=== PATIENT | female | born 1950 | race Caucasian/White ===

== ENCOUNTER → 2018-03-31 | Outpatient (CLI) | payer MEDICARE ==
[~2018-03-31] MED LIST: ACET325T14 PO; ASPI-621 PO; ATOR20TA PO; CALC-192 PO; CHOL2000 PO; CHOL40002 PO; Iron PO; METO-264 PO; MULT-6 PO; NITR0.4T28 SL; OMEP-110 PO; SUPER B COMPLEX PO; TICA90TA PO; [UNRECOGNIZED DRUG - OTHER] PO
[2018-03-31 15:52] LABS: BASOPHILS # (AUTO) 0.01 x10^3/uL (0-0.1); BASOPHILS % (AUTO) 0 % (0-1); EOSINOPHILS # (AUTO) 0.08 x10^3/uL (0-0.4); EOSINOPHILS % (AUTO) 1 % (1-7); LYMPHOCYTES # (AUTO) 2.05 x10^3/uL (1-3.4); LYMPHOCYTES % (AUTO) 26 % (22-44); MD NO; MEAN CORPUSCULAR HEMOGLOBIN 28.6 pg (27.0-34.8); MEAN CORPUSCULAR HGB CONC 33.4 g/dL (32.4-35.8); MEAN CORPUSCULAR VOLUME 85.6 fL (80-100); MEAN PLATELET VOLUME 11.2 fL (7.4-10.4); MONOCYTES # (AUTO) 0.37 x10^3/uL (0.2-0.8); MONOCYTES % (AUTO) 5 % (2-9); NEUTROPHILS # (AUTO) 5.42 x10^3/uL (1.8-6.8); NEUTROPHILS % (AUTO) 68 % (42-75); PLATELET COUNT 130 x10^3/uL (130-400); RED CELL DISTRIBUTION WIDTH 14.5 % (9.6-15.2)
[2018-03-31 15:58] LABS: CALCIUM 8.6 mg/dL (8.5-10.1); CHLORIDE 110 mmol/L (98-107)
[2018-03-31 16:05] LABS: ALANINE AMINOTRANSFERASE 53 U/L (12-78); ALBUMIN 3.9 g/dL (3.4-5.0); ALKALINE PHOSPHATASE 129 U/L (45-117); ANION GAP 7 mmol/L (5-15); BILIRUBIN,TOTAL 0.2 mg/dL (0.2-1.0); CREATININE 1.11 mg/dL (0.55-1.02); TOTAL PROTEIN 7.1 g/dL (6.4-8.2)
== END | disposition home or self-care (01) ==
LOC: CVU 06:47
PROVIDERS: ATTEND Internal Medicine Cardiovascular Disease
DX: I25.9 Chronic ischemic heart disease, unspecified (principal); I34.0 Nonrheumatic mitral (valve) insufficiency; I34.2 Nonrheumatic mitral (valve) stenosis; I35.8 Other nonrheumatic aortic valve disorders; I11.9 Hypertensive heart disease without heart failure; I25.119 Atherosclerotic heart disease of native coronary artery with unspecified angina pectoris; E11.9 Type 2 diabetes mellitus without complications; R00.2 Palpitations; R01.1 Cardiac murmur, unspecified; E66.9 Obesity, unspecified
CPT/HCPCS: 0399T; 36415; 78452; 80053; 85025; 93017; 93306; A9502

== ENCOUNTER 2018-04-02 10:27 | Observation (INO) | payer MEDICARE ==
[~2018-04-02] VITALS: Ht 154.9 cm; Wt 91.5 kg
[2018-04-02] MEDS ORDERED: SODIUM CHLORIDE 0.9% 1,000 ML IV ONE (10:47)
[2018-04-02 10:54] VITALS: BP 173/80
[2018-04-02] MEDS ORDERED: ASPIRIN 325 MG TABLET EC PO ONE (11:00)
[2018-04-02] MEDS ORDERED: CHOL2000 PO (11:07)
[2018-04-02] MEDS ORDERED: ASPI-621 PO (11:07)
[2018-04-02] MEDS ORDERED: OMEP-110 PO (11:07)
[2018-04-02] MEDS ORDERED: SUPER B COMPLEX PO (11:07)
[2018-04-02] MEDS ORDERED: MULT-6 PO (11:07)
[2018-04-02] MEDS ORDERED: CHOL40002 PO (11:07)
[2018-04-02] MEDS ORDERED: ATOR20TA PO (11:07)
[2018-04-02] MEDS ORDERED: METO-264 PO (11:07)
[2018-04-02] MEDS ORDERED: CALC-192 PO (11:07)
[2018-04-02] MEDS ORDERED: [UNRECOGNIZED DRUG - OTHER] PO (11:07)
[2018-04-02] MEDS ORDERED: NITR0.4T28 SL (11:07)
[2018-04-02] MEDS ORDERED: Iron PO (11:12)
[2018-04-02] MEDS ORDERED: ASPIRIN 325 MG TABLET EC ONE (11:37)
[2018-04-02] MEDS ORDERED: FENTANYL PF 100 MCG/2ML ONE (12:14)
[2018-04-02] MEDS ORDERED: VERAPAMIL 2.5 MG/ML, 2ML ONE (12:14)
[2018-04-02] MEDS ORDERED: MIDAZOLAM 1 MG/ML, 2ML ONE ×3 (12:14→13:37)
[2018-04-02] MEDS ORDERED: HEPARIN 1,000 UNITS/ML, 10ML ONE (12:14)
[2018-04-02] MEDS ORDERED: DIPHENHYDRAMINE 50 MG/ML, 1ML ONE (12:14)
[2018-04-02] MEDS ORDERED: BIVALIRUDIN 250 MG ONE (12:56)
[2018-04-02] MEDS ORDERED: TICAGRELOR 90 MG TABLET ONE (12:56)
[2018-04-02] MEDS ORDERED: LABETALOL 5MG/ML, 20ML ONE (13:03)
[2018-04-02] MEDS ORDERED: SODIUM CHLORIDE 0.9% 1,000 ML IV SCH (13:42)
[2018-04-02] MEDS ORDERED: CHOLECALCIFEROL 1,000 UNIT TABLET PO SCH (14:00)
[2018-04-02] MEDS ORDERED: ONDANSETRON 2MG/ML, 2ML IVPush PRN (14:00)
[2018-04-02] MEDS ORDERED: ACETAMINOPHEN 325 MG TABLET PO PRN (14:00)
[2018-04-02] MEDS ORDERED: ZOLPIDEM 5MG TABLET PO PRN (14:00)
[2018-04-02] MEDS: CHOLECALCIFEROL 1,000 UNIT TABLET PO SCH (14:00)
[2018-04-02 14:26] VITALS: BP 118/51
[2018-04-02] MEDS: FERROUS SULFATE 325 MG TABLET PO SCH (14:30)
[2018-04-02] MEDS ORDERED: [UNRECOGNIZED DRUG - OTHER] PO SCH (16:00)
[2018-04-02] MEDS ORDERED: AMLODIPINE 5 MG TABLET PO PRN (18:30)
[2018-04-02] MEDS ORDERED: METOPROLOL SUCCINATE 25 MG TAB.ER.24H PO ONE (18:30)
[2018-04-02 19:08] VITALS: BP 152/76
[2018-04-02] MEDS: TICAGRELOR 90 MG TABLET PO SCH (20:56)
[2018-04-02] MEDS ORDERED: ATORVASTATIN 20 MG TABLET PO SCH (21:00)
[2018-04-02] MEDS ORDERED: CALCIUM/VITAMIN D3 250-125 TABLET PO SCH (21:00)
[2018-04-03 02:01] VITALS: BP 119/67
[2018-04-03 05:10] LABS: ANION GAP 8 mmol/L (5-15); CALCIUM 8.3 mg/dL (8.5-10.1); CHLORIDE 112 mmol/L (98-107)
[2018-04-03 05:12] LABS: CREATININE 1.04 mg/dL (0.55-1.02)
[2018-04-03 07:19] VITALS: BP 158/75
[2018-04-03] MEDS ORDERED: MULTIVITAMIN 1 TABLET PO SCH (09:00)
[2018-04-03] MEDS: FERROUS SULFATE 325 MG TABLET PO SCH ×2 (09:00→09:45)
[2018-04-03] MEDS ORDERED: METOPROLOL SUCCINATE 50 MG TAB.ER.24H PO SCH (09:00)
[2018-04-03] MEDS ORDERED: MULTIVITS,STRESS FORMULA 1 TABLET PO SCH (09:00)
[2018-04-03] MEDS ORDERED: ASPIRIN 81 MG TABLET EC PO SCH (09:00)
[2018-04-03] MEDS ORDERED: ACET325T14 PO (09:33)
[2018-04-03] MEDS ORDERED: TICA90TA PO (09:33)
[2018-04-03] MEDS: TICAGRELOR 90 MG TABLET PO SCH (09:45)
[2018-04-03] MEDS: CHOLECALCIFEROL 1,000 UNIT TABLET PO SCH (09:45)
[2018-04-04] MEDS ORDERED: CHOLECALCIFEROL 1,000 UNIT TABLET PO SCH (09:00)
== END 2018-04-03 10:55 | disposition home or self-care (01) ==
LOC: CACL 10:27 → 5SO 13:42 → CACL 13:42 → 5SO 14:06 → DCLOUNGE 04-03 10:39
PROVIDERS: ADMIT Internal Medicine Cardiovascular Disease; ATTEND Internal Medicine Cardiovascular Disease
DX: I25.119 Atherosclerotic heart disease of native coronary artery with unspecified angina pectoris (principal); I10 Essential (primary) hypertension; E11.22 Type 2 diabetes mellitus with diabetic chronic kidney disease; N18.2 Chronic kidney disease, stage 2 (mild); R01.1 Cardiac murmur, unspecified
CPT/HCPCS: 36415; 80048; 93458; 93567; 93571; 99156; 99157; C1725; C1769; C1874; C1887; C1894; C9600; G0378; J0583; J1200; J1644; J2250; J3010; Q9967

== ENCOUNTER → 2018-04-14 | Outpatient (CLI) | payer MEDICARE ==
[2018-04-14 12:50] LABS: ANION GAP 8 mmol/L (5-15); CHLORIDE 112 mmol/L (98-107); CREATININE 1.24 mg/dL (0.55-1.02)
== END | disposition home or self-care (01) ==
LOC: CFH 10:34
PROVIDERS: ATTEND Internal Medicine Endocrinology, Diabetes & Metabolism
DX: I12.9 Hypertensive chronic kidney disease with stage 1 through stage 4 chronic kidney disease, or unspecified chronic kidney disease (principal); N18.3 Chronic kidney disease, stage 3 (moderate); E11.9 Type 2 diabetes mellitus without complications
CPT/HCPCS: 36415; 80051; 82565; 84520

== ENCOUNTER → 2018-06-03 | Outpatient (CLI) | payer MEDICARE ==
[~2018-06-03] MED LIST changes: -ASPI-621 PO; +ASPI81TA45 PO
[2018-06-03 12:34] LABS: BASOPHILS # (AUTO) 0.02 x10^3/uL (0-0.1); BASOPHILS % (AUTO) 0 % (0-1); EOSINOPHILS # (AUTO) 0.19 x10^3/uL (0-0.4); EOSINOPHILS % (AUTO) 3 % (1-7); LYMPHOCYTES % (AUTO) 23 % (22-44); MD NO; MEAN CORPUSCULAR HEMOGLOBIN 28.7 pg (27.0-34.8); MEAN CORPUSCULAR HGB CONC 32.7 g/dL (32.4-35.8); MEAN CORPUSCULAR VOLUME 87.8 fL (80-100); MEAN PLATELET VOLUME 11.2 fL (7.4-10.4); MONOCYTES # (AUTO) 0.28 x10^3/uL (0.2-0.8); MONOCYTES % (AUTO) 5 % (2-9); NEUTROPHILS # (AUTO) 4.28 x10^3/uL (1.8-6.8); NEUTROPHILS % (AUTO) 69 % (42-75); PLATELET COUNT 119 x10^3/uL (130-400); RED BLOOD COUNT 4.36 x10^6/uL (3.82-5.3); RED CELL DISTRIBUTION WIDTH 15.1 % (9.6-15.2)
[2018-06-03 12:59] LABS: ALBUMIN 3.8 g/dL (3.4-5.0); ANION GAP 8 mmol/L (5-15); CALCIUM 8.4 mg/dL (8.5-10.1); CHLORIDE 112 mmol/L (98-107)
[2018-06-03 13:27] LABS: % IRON SATURATION 25 % (20-55); ALANINE AMINOTRANSFERASE 83 U/L (12-78); ALKALINE PHOSPHATASE 137 U/L (45-117); BILIRUBIN,TOTAL 0.9 mg/dL (0.2-1.0); CHOL/HDL RATIO 1.8; CHOLESTEROL, TOTAL 88 mg/dL (140-239); HDL CHOL % 55 % (28-40); HDL CHOLESTEROL (DIRECT) 48 mg/dL (40-60); IRON LEVEL 80 mcg/dL (50-170); LDL CHOLESTEROL,CALCULATED 23 mg/dL (54-169); LDL/HDL RATIO 0.5 (0.5-3.0); PREALBUMIN 20.8 mg/dL (20.0-40.0); TOTAL IRON BINDING CAPACITY 321 mcg/dL (250-450); TOTAL PROTEIN 6.9 g/dL (6.4-8.2); TRANSFERRIN 240 mg/dL (200-360); TRIGLYCERIDES 87 mg/dL (50-200); VLDL CHOLESTEROL 17 mg/dL (0-25)
[2018-06-03 13:58] LABS: HEMOGLOBIN A1C 8.2 % (4.2-6.3)
== END | disposition home or self-care (01) ==
LOC: CFH 08:43
PROVIDERS: ATTEND Internal Medicine Cardiovascular Disease
DX: E11.22 Type 2 diabetes mellitus with diabetic chronic kidney disease (principal); I12.9 Hypertensive chronic kidney disease with stage 1 through stage 4 chronic kidney disease, or unspecified chronic kidney disease; N18.2 Chronic kidney disease, stage 2 (mild); E78.00 Pure hypercholesterolemia, unspecified; E66.9 Obesity, unspecified; K20.9 Esophagitis, unspecified; K76.0 Fatty (change of) liver, not elsewhere classified; Z72.4 Inappropriate diet and eating habits; Z98.84 Bariatric surgery status
CPT/HCPCS: 36415; 80053; 80061; 82043; 82306; 82570; 82607; 83036; 83540; 83550; 84134; 84207; 84252; 84425; 84466; 85025

== ENCOUNTER → 2018-11-19 | Outpatient (CLI) | payer MEDICARE ==
[2018-11-19 12:47] LABS: BASOPHILS # (AUTO) 0.02 x10^3/uL (0-0.1); BASOPHILS % (AUTO) 0 % (0-1); EOSINOPHILS % (AUTO) 3 % (1-7); LYMPHOCYTES % (AUTO) 25 % (22-44); MD NO; MEAN CORPUSCULAR HEMOGLOBIN 30.3 pg (27.0-34.8); MEAN CORPUSCULAR HGB CONC 32.5 g/dL (32.4-35.8); MEAN CORPUSCULAR VOLUME 93.3 fL (80-100); MEAN PLATELET VOLUME 11.5 fL (7.4-10.4); MONOCYTES # (AUTO) 0.22 x10^3/uL (0.2-0.8); MONOCYTES % (AUTO) 4 % (2-9); NEUTROPHILS # (AUTO) 4.17 x10^3/uL (1.8-6.8); NEUTROPHILS % (AUTO) 68 % (42-75); PLATELET COUNT 103 x10^3/uL (130-400); RED BLOOD COUNT 4.07 x10^6/uL (3.82-5.3); RED CELL DISTRIBUTION WIDTH 13.8 % (9.6-15.2)
[2018-11-19 13:08] LABS: ALBUMIN 3.8 g/dL (3.4-5.0); CALCIUM 8.6 mg/dL (8.5-10.1)
[2018-11-19 13:14] LABS: HEMOGLOBIN A1C 8.1 % (4.2-6.3)
[2018-11-19 13:23] LABS: ANION GAP 5 mmol/L (5-15); CHLORIDE 112 mmol/L (98-107)
[2018-11-19 13:38] LABS: % IRON SATURATION 28 % (20-55); ALANINE AMINOTRANSFERASE 100 U/L (12-78); ALKALINE PHOSPHATASE 144 U/L (45-117); BILIRUBIN,TOTAL 0.4 mg/dL (0.2-1.0); CHOL/HDL RATIO 2.1; CHOLESTEROL, TOTAL 94 mg/dL (140-239); CREATININE 1.22 mg/dL (0.55-1.02); FREE T4 (FREE THYROXINE) 0.98 ng/dL (0.76-1.46); HDL CHOL % 48 % (28-40); HDL CHOLESTEROL (DIRECT) 45 mg/dL (40-60); IRON LEVEL 95 mcg/dL (50-170); LDL CHOLESTEROL,CALCULATED 31 mg/dL (54-169); LDL/HDL RATIO 0.7 (0.5-3.0); PREALBUMIN 24.6 mg/dL (20.0-40.0); TOTAL IRON BINDING CAPACITY 343 mcg/dL (250-450); TOTAL PROTEIN 7.1 g/dL (6.4-8.2); TRANSFERRIN 254 mg/dL (200-360); TRIGLYCERIDES 90 mg/dL (50-200); VLDL CHOLESTEROL 18 mg/dL (0-25)
[2018-11-19 13:40] LABS: FOLATE LEVEL > 20.0 ng/mL (3.1-17.5)
== END | disposition home or self-care (01) ==
LOC: CFH 07:59
PROVIDERS: ATTEND Internal Medicine Cardiovascular Disease
DX: E11.22 Type 2 diabetes mellitus with diabetic chronic kidney disease (principal); N18.3 Chronic kidney disease, stage 3 (moderate); R53.81 Other malaise; I25.10 Atherosclerotic heart disease of native coronary artery without angina pectoris; E66.9 Obesity, unspecified
CPT/HCPCS: 36415; 80053; 80061; 82043; 82306; 82570; 82607; 82746; 83036; 83540; 83550; 84134; 84207; 84252; 84425; 84439; 84443; 84466; 84480; 85025

== ENCOUNTER 2018-12-17 08:41 | Outpatient (CLI) | payer MEDICARE ==
[2018-12-17 13:02] LABS: ALBUMIN 3.8 g/dL (3.4-5.0); ANION GAP 4 mmol/L (5-15); CALCIUM 8.7 mg/dL (8.5-10.1); CHLORIDE 117 mmol/L (98-107)
[2018-12-17 13:05] LABS: ALANINE AMINOTRANSFERASE 33 U/L (12-78); ALKALINE PHOSPHATASE 123 U/L (45-117); BILIRUBIN,TOTAL 0.3 mg/dL (0.2-1.0)
== END 2018-12-17 23:59 | disposition home or self-care (01) ==
LOC: CFH 08:41
PROVIDERS: ATTEND Internal Medicine Cardiovascular Disease
DX: I25.119 Atherosclerotic heart disease of native coronary artery with unspecified angina pectoris (principal); E78.00 Pure hypercholesterolemia, unspecified; I12.9 Hypertensive chronic kidney disease with stage 1 through stage 4 chronic kidney disease, or unspecified chronic kidney disease; E11.22 Type 2 diabetes mellitus with diabetic chronic kidney disease; N18.2 Chronic kidney disease, stage 2 (mild); I34.2 Nonrheumatic mitral (valve) stenosis; R53.83 Other fatigue
CPT/HCPCS: 36415; 80053

== ENCOUNTER 2018-12-29 08:50 | Outpatient (CLI) | payer MEDICARE ==
[2018-12-29 12:37] LABS: BASOPHILS # (AUTO) 0.02 x10^3/uL (0-0.1); BASOPHILS % (AUTO) 0 % (0-1); EOSINOPHILS % (AUTO) 3 % (1-7); LYMPHOCYTES # (AUTO) 1.89 x10^3/uL (1-3.4); LYMPHOCYTES % (AUTO) 25 % (22-44); MD NO; MEAN CORPUSCULAR HEMOGLOBIN 30.4 pg (27.0-34.8); MEAN CORPUSCULAR HGB CONC 32.6 g/dL (32.4-35.8); MEAN CORPUSCULAR VOLUME 93.2 fL (80-100); MEAN PLATELET VOLUME 10.6 fL (7.4-10.4); MONOCYTES # (AUTO) 0.37 x10^3/uL (0.2-0.8); MONOCYTES % (AUTO) 5 % (2-9); NEUTROPHILS # (AUTO) 5.09 x10^3/uL (1.8-6.8); NEUTROPHILS % (AUTO) 67 % (42-75); PLATELET COUNT 122 x10^3/uL (130-400); RED CELL DISTRIBUTION WIDTH 14.3 % (9.6-15.2)
[2018-12-29 13:47] LABS: ALBUMIN 3.8 g/dL (3.4-5.0); ANION GAP 4 mmol/L (5-15); CALCIUM 8.9 mg/dL (8.5-10.1); CHLORIDE 114 mmol/L (98-107); CREATININE 1.28 mg/dL (0.55-1.02)
[2018-12-29 13:49] LABS: ALANINE AMINOTRANSFERASE 41 U/L (12-78); ALKALINE PHOSPHATASE 123 U/L (45-117); TOTAL PROTEIN 7.2 g/dL (6.4-8.2)
[2018-12-29 13:51] LABS: BILIRUBIN,TOTAL 0.3 mg/dL (0.2-1.0)
== END 2018-12-29 23:59 | disposition home or self-care (01) ==
LOC: CFH 08:50
PROVIDERS: ATTEND Internal Medicine Cardiovascular Disease
DX: I25.119 Atherosclerotic heart disease of native coronary artery with unspecified angina pectoris (principal); I34.2 Nonrheumatic mitral (valve) stenosis; E78.00 Pure hypercholesterolemia, unspecified; I10 Essential (primary) hypertension; R53.83 Other fatigue
CPT/HCPCS: 36415; 80053; 85025

== ENCOUNTER 2018-12-30 12:15 | Outpatient (CLI) | payer MEDICARE | END 2018-12-30 23:59 | disposition home or self-care (01) | LOC: CFH 12:15 | PROVIDERS: ATTEND Internal Medicine Cardiovascular Disease | DX: R07.89 Other chest pain (principal) | CPT/HCPCS: 78452; 93017; A9502 ==

== ENCOUNTER 2019-01-05 13:25 | Outpatient (CLI) | payer MEDICARE | END 2019-01-05 23:59 | disposition home or self-care (01) | LOC: CFH 13:25 | PROVIDERS: ATTEND Internal Medicine Endocrinology, Diabetes & Metabolism | DX: E11.22 Type 2 diabetes mellitus with diabetic chronic kidney disease (principal) | CPT/HCPCS: 36415; 82565; 84520 ==

== ENCOUNTER → 2019-03-29 | Outpatient (CLI) | payer MEDICARE ==
[2019-03-29 13:31] LABS: HEMOGLOBIN A1C 7.5 % (4.2-6.3)
[2019-03-29 13:43] LABS: CHLORIDE 112 mmol/L (98-107)
[2019-03-29 14:20] LABS: ANION GAP 4 mmol/L (5-15); CREATININE 1.08 mg/dL (0.55-1.02)
== END | disposition home or self-care (01) ==
LOC: LAB 10:39
PROVIDERS: ATTEND Physician Assistant Medical
DX: E11.22 Type 2 diabetes mellitus with diabetic chronic kidney disease (principal); N18.9 Chronic kidney disease, unspecified; E78.00 Pure hypercholesterolemia, unspecified
CPT/HCPCS: 36415; 80048; 82607; 83036

== ENCOUNTER 2019-04-15 08:23 | Outpatient (CLI) | payer MEDICARE ==
[2019-04-15] MEDS ORDERED: LACT1CAP37 PO (12:16)
[2019-04-15] MEDS ORDERED: ATOR40TA PO (12:16)
[2019-04-15] MEDS ORDERED: CALC-55 PO (12:16)
[2019-04-15] MEDS ORDERED: TICA90TA PO (12:17)
[2019-04-15] MEDS ORDERED: HYDR25TA6 PO (12:17)
[2019-04-15] MEDS ORDERED: METF500T17 PO (12:17)
[2019-04-15] MEDS ORDERED: CHOL2000 PO (12:19)
[2019-04-15] MEDS ORDERED: ASPI-496 PO (12:20)
[2019-04-15] MEDS ORDERED: VITA1CAP PO (12:22)
== END 2019-04-15 23:59 | disposition home or self-care (01) ==
LOC: STAR 08:23
PROVIDERS: ATTEND Surgery
DX: Z01.818 Encounter for other preprocedural examination (principal); Z82.49 Family history of ischemic heart disease and other diseases of the circulatory system; K55.1 Chronic vascular disorders of intestine
CPT/HCPCS: 36415; 71046; 80053; 85025; 93005

== ENCOUNTER 2019-04-23 12:18 | Day surgery (SDC) | payer MEDICARE ==
[2019-04-15 09:23] LABS: BASOPHILS # (AUTO) 0.02 x10^3/uL (0-0.1); BASOPHILS % (AUTO) 0 % (0-1); EOSINOPHILS # (AUTO) 0.13 x10^3/uL (0-0.4); EOSINOPHILS % (AUTO) 2 % (1-7); LYMPHOCYTES # (AUTO) 1.79 x10^3/uL (1-3.4); LYMPHOCYTES % (AUTO) 24 % (22-44); MD NO; MEAN CORPUSCULAR HEMOGLOBIN 29.3 pg (27.0-34.8); MEAN CORPUSCULAR HGB CONC 32.1 g/dL (32.4-35.8); MEAN CORPUSCULAR VOLUME 91.5 fL (80-100); MONOCYTES # (AUTO) 0.41 x10^3/uL (0.2-0.8); MONOCYTES % (AUTO) 6 % (2-9); NEUTROPHILS # (AUTO) 5.07 x10^3/uL (1.8-6.8); NEUTROPHILS % (AUTO) 68 % (42-75); PLATELET COUNT 137 x10^3/uL (130-400); RED BLOOD COUNT 4.28 x10^6/uL (3.82-5.3); RED CELL DISTRIBUTION WIDTH 13.6 % (9.6-15.2)
[2019-04-15 09:31] LABS: ALANINE AMINOTRANSFERASE 62 U/L (12-78); ALBUMIN 3.8 g/dL (3.4-5.0); CALCIUM 8.5 mg/dL (8.5-10.1); CREATININE 1.33 mg/dL (0.55-1.02)
[2019-04-15 09:34] LABS: ALKALINE PHOSPHATASE 111 U/L (45-117); BILIRUBIN,TOTAL 0.4 mg/dL (0.2-1.0); TOTAL PROTEIN 7.1 g/dL (6.4-8.2)
[2019-04-15 09:43] LABS: ANION GAP 6 mmol/L (5-15); CHLORIDE 110 mmol/L (98-107)
[~2019-04-23] VITALS: Ht 157.5 cm; Wt 90.8 kg
[~2019-04-23 12:18] MED LIST changes: +ASPI-496 PO; +ATOR40TA PO; +CALC-55 PO; +HYDR25TA6 PO; +LACT1CAP37 PO; +METF500T17 PO; +VITA1CAP PO
[2019-04-23 13:36] VITALS: BP 164/83
[2019-04-23] MEDS ORDERED: FLUMAZENIL 0.1 MG/1 ML, 5ML ONE (13:45)
[2019-04-23] MEDS ORDERED: HEPARIN 5,000 UNITS/ML, 1ML ONE (13:45)
[2019-04-23] MEDS ORDERED: MIDAZOLAM 1 MG/ML, 5ML ONE (13:45)
[2019-04-23] MEDS ORDERED: FENTANYL PF 100 MCG/2ML ONE (13:45)
[2019-04-23] MEDS ORDERED: NITROGLYCERIN 5 MG/ML, 10ML ONE (13:45)
[2019-04-23] MEDS ORDERED: NALOXONE 1 MG/ML, 2ML ONE (13:46)
[2019-04-23] MEDS ORDERED: PROTAMINE SULFATE 10 MG/ML, 25ML ONE (13:46)
[2019-04-23] MEDS ORDERED: LIDOCAINE 1%, 10ML ONE (13:46)
[2019-04-23] MEDS ORDERED: VISIPAQUE 270 MG/ML, 150ML BOTTLE ONE (14:00)
== END 2019-04-23 17:50 | disposition home or self-care (01) ==
LOC: OUT 12:18 → EDSTATUS 13:30 → OUT 17:50
PROVIDERS: ATTEND Surgery
DX: I77.4 Celiac artery compression syndrome (principal); I25.10 Atherosclerotic heart disease of native coronary artery without angina pectoris; E11.22 Type 2 diabetes mellitus with diabetic chronic kidney disease; N18.2 Chronic kidney disease, stage 2 (mild); E78.00 Pure hypercholesterolemia, unspecified; I73.9 Peripheral vascular disease, unspecified; E66.9 Obesity, unspecified; Z68.37 Body mass index [BMI] 37.0-37.9, adult; Z79.82 Long term (current) use of aspirin; Z79.84 Long term (current) use of oral hypoglycemic drugs; Z79.899 Other long term (current) drug therapy; Z95.5 Presence of coronary angioplasty implant and graft; Z98.84 Bariatric surgery status
CPT/HCPCS: 36200; 75625; 76937; 82962; 99156; 99157; C1751; C1760; C1769; C1894; G0269; J1644; J2250; J2720; J3010; Q9966; 36415; 71046; 75630; 80053; 85025; J2310

== ENCOUNTER → 2019-06-28 | Outpatient (CLI) | payer MEDICARE ==
[2019-06-28 12:54] LABS: BASOPHILS # (AUTO) 0.01 x10^3/uL (0-0.1); BASOPHILS % (AUTO) 0 % (0-1); EOSINOPHILS % (AUTO) 2 % (1-7); LYMPHOCYTES # (AUTO) 1.32 x10^3/uL (1-3.4); LYMPHOCYTES % (AUTO) 26 % (22-44); MD NO; MEAN CORPUSCULAR HEMOGLOBIN 29.8 pg (27.0-34.8); MEAN CORPUSCULAR HGB CONC 32.6 g/dL (32.4-35.8); MEAN CORPUSCULAR VOLUME 91.3 fL (80-100); MEAN PLATELET VOLUME 10.2 fL (7.4-10.4); MONOCYTES # (AUTO) 0.31 x10^3/uL (0.2-0.8); MONOCYTES % (AUTO) 6 % (2-9); NEUTROPHILS # (AUTO) 3.24 x10^3/uL (1.8-6.8); NEUTROPHILS % (AUTO) 65 % (42-75); PLATELET COUNT 113 x10^3/uL (130-400); RED BLOOD COUNT 4.05 x10^6/uL (3.82-5.3); RED CELL DISTRIBUTION WIDTH 13.9 % (9.6-15.2)
[2019-06-28 13:23] LABS: CHLORIDE 107 mmol/L (98-107)
[2019-06-28 13:58] LABS: % IRON SATURATION 27 % (20-55); ALANINE AMINOTRANSFERASE 40 U/L (12-78); ALBUMIN 3.6 g/dL (3.4-5.0); ALKALINE PHOSPHATASE 111 U/L (45-117); ANION GAP 7 mmol/L (5-15); BILIRUBIN,TOTAL 0.4 mg/dL (0.2-1.0); CHOL/HDL RATIO 3.4; CHOLESTEROL, TOTAL 139 mg/dL (140-239); CREATININE 1.15 mg/dL (0.55-1.02); HDL CHOL % 29 % (28-40); HDL CHOLESTEROL (DIRECT) 41 mg/dL (40-60); IRON LEVEL 92 mcg/dL (50-170); LDL CHOLESTEROL,CALCULATED 64 mg/dL (54-169); LDL/HDL RATIO 1.6 (0.5-3.0); PREALBUMIN 25.5 mg/dL (20.0-40.0); TOTAL IRON BINDING CAPACITY 336 mcg/dL (250-450); TOTAL PROTEIN 6.8 g/dL (6.4-8.2); TRANSFERRIN 254 mg/dL (200-360); TRIGLYCERIDES 171 mg/dL (50-200); VLDL CHOLESTEROL 34 mg/dL (0-25)
[2019-06-28 14:00] LABS: FOLATE LEVEL > 20.0 ng/mL (3.1-17.5)
== END | disposition home or self-care (01) ==
LOC: CFH 10:00
PROVIDERS: ATTEND Physician Assistant Medical
DX: E11.8 Type 2 diabetes mellitus with unspecified complications (principal); E78.00 Pure hypercholesterolemia, unspecified; E87.5 Hyperkalemia; N28.9 Disorder of kidney and ureter, unspecified; R07.89 Other chest pain; I10 Essential (primary) hypertension; R00.2 Palpitations; Z79.899 Other long term (current) drug therapy
CPT/HCPCS: 36415; 80053; 80061; 82306; 82607; 82746; 83036; 83540; 83550; 84134; 84207; 84252; 84425; 84466; 85025

== ENCOUNTER 2019-07-30 09:00 | Outpatient (CLI) | payer MEDICARE | END 2019-07-30 23:59 | disposition home or self-care (01) | LOC: CFH 09:00 | PROVIDERS: ATTEND Family Medicine | DX: Z12.31 Encounter for screening mammogram for malignant neoplasm of breast (principal) | CPT/HCPCS: 77067 ==

== ENCOUNTER → 2019-09-28 | Outpatient (CLI) | payer MEDICARE ==
[2019-09-28 12:58] LABS: BASOPHILS # (AUTO) 0.02 x10^3/uL (0-0.1); BASOPHILS % (AUTO) 0 % (0-1); EOSINOPHILS # (AUTO) 0.15 x10^3/uL (0-0.4); EOSINOPHILS % (AUTO) 2 % (1-7); LYMPHOCYTES # (AUTO) 1.86 x10^3/uL (1-3.4); LYMPHOCYTES % (AUTO) 27 % (22-44); MD NO; MEAN CORPUSCULAR HEMOGLOBIN 29.4 pg (27.0-34.8); MEAN CORPUSCULAR HGB CONC 32.6 g/dL (32.4-35.8); MEAN CORPUSCULAR VOLUME 90.2 fL (80-100); MEAN PLATELET VOLUME 10.1 fL (7.4-10.4); MONOCYTES # (AUTO) 0.32 x10^3/uL (0.2-0.8); MONOCYTES % (AUTO) 5 % (2-9); NEUTROPHILS # (AUTO) 4.64 x10^3/uL (1.8-6.8); NEUTROPHILS % (AUTO) 66 % (42-75); PLATELET COUNT 128 x10^3/uL (130-400); RED BLOOD COUNT 4.02 x10^6/uL (3.82-5.3); RED CELL DISTRIBUTION WIDTH 13.7 % (9.6-15.2)
[2019-09-28 13:15] LABS: CHLORIDE 109 mmol/L (98-107)
[2019-09-28 13:21] LABS: ALANINE AMINOTRANSFERASE 43 U/L (12-78); ALBUMIN 3.8 g/dL (3.4-5.0); ALKALINE PHOSPHATASE 85 U/L (45-117); ANION GAP 8 mmol/L (5-15); BILIRUBIN,TOTAL 0.5 mg/dL (0.2-1.0); CREATININE 1.39 mg/dL (0.55-1.02); TOTAL PROTEIN 7.2 g/dL (6.4-8.2)
== END | disposition home or self-care (01) ==
LOC: CFH 09:30
PROVIDERS: ATTEND Internal Medicine Cardiovascular Disease
DX: I08.8 Other rheumatic multiple valve diseases (principal); I10 Essential (primary) hypertension; E11.9 Type 2 diabetes mellitus without complications
CPT/HCPCS: 36415; 80053; 83036; 85025; 93306

== ENCOUNTER 2019-11-29 08:24 | Outpatient (CLI) | payer MEDICARE ==
[2019-11-29 12:58] LABS: BASOPHILS # (AUTO) 0.02 x10^3/uL (0-0.1); BASOPHILS % (AUTO) 0 % (0-1); EOSINOPHILS # (AUTO) 0.16 x10^3/uL (0-0.4); EOSINOPHILS % (AUTO) 3 % (1-7); LYMPHOCYTES # (AUTO) 1.78 x10^3/uL (1-3.4); LYMPHOCYTES % (AUTO) 33 % (22-44); MD NO; MEAN CORPUSCULAR HEMOGLOBIN 29.6 pg (27.0-34.8); MEAN CORPUSCULAR HGB CONC 32.5 g/dL (32.4-35.8); MEAN PLATELET VOLUME 10.4 fL (7.4-10.4); MONOCYTES # (AUTO) 0.33 x10^3/uL (0.2-0.8); MONOCYTES % (AUTO) 6 % (2-9); NEUTROPHILS # (AUTO) 3.08 x10^3/uL (1.8-6.8); NEUTROPHILS % (AUTO) 57 % (42-75); PLATELET COUNT 127 x10^3/uL (130-400); RED CELL DISTRIBUTION WIDTH 13.6 % (9.6-15.2)
[2019-11-29 13:35] LABS: CHLORIDE 112 mmol/L (98-107)
[2019-11-29 13:40] LABS: ALANINE AMINOTRANSFERASE 33 U/L (12-78); ALBUMIN 3.7 g/dL (3.4-5.0); ALKALINE PHOSPHATASE 81 U/L (45-117); ANION GAP 6 mmol/L (5-15); BILIRUBIN,TOTAL 0.3 mg/dL (0.2-1.0); CALCIUM 8.6 mg/dL (8.5-10.1)
== END 2019-11-29 23:59 | disposition home or self-care (01) ==
LOC: CFH 08:24
PROVIDERS: ATTEND Physician Assistant
DX: E11.22 Type 2 diabetes mellitus with diabetic chronic kidney disease (principal); R11.2 Nausea with vomiting, unspecified; K31.84 Gastroparesis; K55.059 Acute (reversible) ischemia of intestine, part and extent unspecified; K85.90 Acute pancreatitis without necrosis or infection, unspecified; E11.9 Type 2 diabetes mellitus without complications; R68.81 Early satiety; N18.9 Chronic kidney disease, unspecified
CPT/HCPCS: 36415; 80053; 82043; 82570; 83690; 85025

== ENCOUNTER → 2019-12-10 | Outpatient (CLI) | payer MEDICARE ==
[~2019-12-10] MED LIST changes: +OMNIPAQUE 350 MG/ML, 100ML BOTTLE ONE
== END | disposition home or self-care (01) ==
LOC: CFH 08:02
PROVIDERS: ATTEND Physician Assistant
DX: K76.0 Fatty (change of) liver, not elsewhere classified (principal); K55.059 Acute (reversible) ischemia of intestine, part and extent unspecified; K85.90 Acute pancreatitis without necrosis or infection, unspecified; I70.1 Atherosclerosis of renal artery; R68.81 Early satiety; I70.0 Atherosclerosis of aorta
CPT/HCPCS: 74170; Q9967

== ENCOUNTER 2019-12-13 08:49 | Outpatient (CLI) | payer MEDICARE ==
[~2019-12-13 08:49] MED LIST changes: -OMNIPAQUE 350 MG/ML, 100ML BOTTLE ONE
[2019-12-14 13:01] LABS: INTERNATIONAL NORMALIZED RATIO 0.95 (0.93-1.1); PROTHROMBIN TIME 10.1 Seconds (9.6-11.5)
== END 2019-12-13 23:59 | disposition home or self-care (01) ==
LOC: CFH 08:49
PROVIDERS: ATTEND Physician Assistant
DX: R16.0 Hepatomegaly, not elsewhere classified (principal); Z98.890 Other specified postprocedural states
CPT/HCPCS: 36415; 82107; 82728; 83540; 83550; 85610; 86038; 86704; 86803; 87340

== ENCOUNTER → 2019-12-31 | Outpatient (CLI) | payer MEDICARE ==
[2019-12-31 12:46] LABS: MEAN CORPUSCULAR HEMOGLOBIN 29.5 pg (27.0-34.8); MEAN CORPUSCULAR HGB CONC 32.3 g/dL (32.4-35.8); MEAN CORPUSCULAR VOLUME 91.4 fL (80-100); MEAN PLATELET VOLUME 10.4 fL (7.4-10.4); PLATELET COUNT 114 x10^3/uL (130-400); RED BLOOD COUNT 3.94 x10^6/uL (3.82-5.3); RED CELL DISTRIBUTION WIDTH 13.5 % (9.6-15.2)
[2019-12-31 13:00] LABS: CHLORIDE 113 mmol/L (98-107)
[2019-12-31 13:31] LABS: % IRON SATURATION 24 % (20-55); ALANINE AMINOTRANSFERASE 30 U/L (12-78); ALBUMIN 3.8 g/dL (3.4-5.0); ALKALINE PHOSPHATASE 74 U/L (45-117); ANION GAP 6 mmol/L (5-15); BILIRUBIN,TOTAL 0.5 mg/dL (0.2-1.0); CALCIUM 9.2 mg/dL (8.5-10.1); CHOL/HDL RATIO 2.8; CHOLESTEROL, TOTAL 120 mg/dL (140-239); CREATININE 1.44 mg/dL (0.55-1.02); HDL CHOL % 36 % (28-40); HDL CHOLESTEROL (DIRECT) 43 mg/dL (40-60); IRON LEVEL 77 mcg/dL (50-170); LDL CHOLESTEROL,CALCULATED 57 mg/dL (54-169); LDL/HDL RATIO 1.3 (0.5-3.0); PREALBUMIN 22.5 mg/dL (20.0-40.0); TOTAL IRON BINDING CAPACITY 322 mcg/dL (250-450); TRANSFERRIN 235 mg/dL (200-360); TRIGLYCERIDES 101 mg/dL (50-200); VLDL CHOLESTEROL 20 mg/dL (0-25)
[2019-12-31 13:38] LABS: FOLATE LEVEL > 20.0 ng/mL (3.1-17.5)
== END | disposition home or self-care (01) ==
LOC: CFH 09:10
PROVIDERS: ATTEND Surgery
DX: Z13.89 Encounter for screening for other disorder (principal); R63.8 Other symptoms and signs concerning food and fluid intake; E55.9 Vitamin D deficiency, unspecified; E53.8 Deficiency of other specified B group vitamins; E11.9 Type 2 diabetes mellitus without complications; K76.0 Fatty (change of) liver, not elsewhere classified; E66.9 Obesity, unspecified
CPT/HCPCS: 36415; 80053; 80061; 82607; 82652; 82746; 83036; 83540; 83550; 84134; 84207; 84252; 84425; 84466; 85027

== ENCOUNTER 2021-01-31 08:34 | Outpatient (CLI) | payer MEDICARE | END 2021-01-31 23:59 | disposition home or self-care (01) | LOC: CFH 08:34 → LAB 23:59 | PROVIDERS: ATTEND Internal Medicine Cardiovascular Disease | DX: I08.0 Rheumatic disorders of both mitral and aortic valves (principal) ==